=== PATIENT | female | born 1985 | race Caucasian/White ===

== ENCOUNTER → 2019-07-15 | Outpatient (CLI) | payer OTHER ==
[~2019-07-15] VITALS: Ht 167.6 cm; Wt 71.7 kg
[~2019-07-15] MED LIST: SINCALIDE 1.43 MCG in IV NORMAL SALINE 50ML 30 ML IV ONE
--- NOTE | 2019-07-15 16:06 | RAD ---
Hepatobiliary scan 07/15/2019 INDICATION: Right upper quadrant pain COMPARISON STUDY: HEPATOBILIARY SCAN WITH EJECTION FRACTION 07/15/2019 4:01 PM History: Right upper abdominal pain x6 months Procedure: Serial static images are obtained of the liver and biliary system in the frontal projection following IV administration of 5 mCi of Technetium 99m Choletec. After filling of the gallbladder, 1.43 mcg of sincalide were infused over 30 minutes and dynamic imaging continued over this period. The gallbladder ejection fraction was calculated. Findings: There is an appropriate hepatic clearance of tracer from the blood pool. Gallbladder fills with radiotracer in expected fashion. Following the administration of CCK gallbladder ejection fraction measures 30% (normal gallbladder EF is 35% or greater). IMPRESSION: 1. The cystic duct and common bile duct are patent. Negative for acute cholecystitis. 2. The gallbladder ejection fraction is abnormally low measuring 30%. Correlate for clinical evidence of chronic cholecystitis or gallbladder dyskinesia. Electronically signed by: Yoni Person MD (07/15/2019 4:03 PM) [id number]
== END | disposition home or self-care (01) ==
LOC: NM 13:01
PROVIDERS: ATTEND Internal Medicine Gastroenterology
DX: R10.13 Epigastric pain (principal)
CPT/HCPCS: 78227; A9537; J2805

== ENCOUNTER → 2019-08-09 | Outpatient (CLI) | payer OTHER ==
[~2019-08-09] MED LIST changes: +IOHEXOL 240 MG/ML 50ML VIAL. ONE; +IOHEXOL 240 MG/ML 50ML VIAL. PO ONE; +IOHEXOL 300 MG/ML 75 ML VIAL. IV ONE; -SINCALIDE 1.43 MCG in IV NORMAL SALINE 50ML 30 ML IV ONE
--- NOTE | 2019-08-09 16:11 | RAD ---
Examination: CT ABD PELV W/ORAL IV CONTRAST History: Nausea, epigastric pain, upper abdominal pain Comparison/Correlation: None Findings: Axial images of the abdomen pelvis were obtained following IV and oral contrast. Sagittal and coronal reformatted images were obtained. The visualized lung bases are clear. Liver, spleen, pancreas, and adrenal glands are normal. Gallbladder fossa is unremarkable. Bilateral extrarenal pelves noted. Symmetric perfusion of the kidneys is present and normal. Moderate to large quantity of stool in the colon is present. No inflammatory change about the cecum. No enlarged abdominal or pelvic lymph nodes. No extraluminal gas. Small umbilical hernia contains omental fat. Heterogeneous, hypoenhancement of the myometrium and endometrium is noted and nonspecific. Urinary bladder is unremarkable. Small adnexal follicles are suggested. Bony structures are unremarkable. T12 sclerotic bone lesion which probably represents a bone island is present. Impression: No mass, inflammatory process or other suspicious finding. PQRS Compliance Statement: One or more of the following individualized dose reduction techniques were utilized for this examination: 1. Automated exposure control 2. Adjustment of the mA and/or kV according to patient size 3. Use of iterative reconstruction technique Electronically signed by: Mario Caal MD (08/09/2019 4:08 PM) [facility]
== END | disposition home or self-care (01) ==
LOC: CT 11:25
PROVIDERS: ATTEND Internal Medicine Gastroenterology
DX: K42.9 Umbilical hernia without obstruction or gangrene (principal)
CPT/HCPCS: 74177; Q9967

== ENCOUNTER 2019-11-21 07:46 | Emergency (ER) | payer OTHER ==
[~2019-11-21] VITALS: Ht 167.6 cm; Wt 72.0 kg
[2019-11-21] MEDS ORDERED: IV NORMAL SALINE 1,000ML 1,000 ML IV SCH (08:04)
[2019-11-21] MEDS ORDERED: KETOROLAC 30 MG/ML VIAL. IVP ONE (08:15)
--- NOTE | 2019-11-21 08:37 | PHYS DOC ---
Past History Past Medical History: Hypothyroid Past Surgical History: Cholecystectomy, Alcohol Use: Occasionally Adult General Chief Complaint Chief Complaint: FEVER HPI HPI Patient is a 34-year-old female who presents with complaint of fever and cough that started yesterday. Patient states that fever has been as high as 105 at home. Patient states that cough has been productive of green sputum. She states that she also has body aches and chills. She denies any chest pain or shortness of breath. She also denies any vomiting or diarrhea. Patient states that she has been taking in quite a bit of fluids.[] Review of Systems Review of Systems Constitutional: Positive fever and chills [] Respiratory: Positive cough without shortness of breath [] Cardiovascular: No additional information not addressed in HPI [] GI: Denies abdominal pain, nausea, vomiting or diarrhea [] Integument: Denies rash or skin lesions [] Neurologic: Denies headache, focal weakness or sensory changes [] All other systems were reviewed and found to be within normal limits, except as documented in this note. Current Medications Current Medications Current Medications Medications (Trade) Dose Ordered Sig/Michael Start Time Stop Time Status Last Admin Dose Admin Ketorolac Tromethamine (Toradol 30mg Vial) 30 mg 1X ONCE 11/21/19 08:15 11/21/19 08:16 DC Sodium Chloride 1,000 ml @ 1,000 mls/hr Q1H 11/21/19 08:04 11/21/19 09:03 Allergies Allergies Allergies Coded Allergies Type Severity Reaction Last Updated Verified No Known Drug Allergies 07/15/19 No Physical Exam Physical Exam Constitutional: Well developed, well nourished, no acute distress, non-toxic appearance. [] HENT: Normocephalic, atraumatic, bilateral external ears normal, oropharynx moist, no oral exudates, nose normal. [] Eyes: PERRLA, EOMI, conjunctiva normal, no discharge. [] Neck: Normal range of motion, no tenderness, supple. [] Cardiovascular: Mildly tachycardic rate with regular rhythm[] Lungs & Thorax: Bilateral breath sounds clear to auscultation [] Abdomen: Bowel sounds normal, soft, no tenderness. [] Skin: Warm, dry, no erythema, no rash. [] Extremities: No tenderness, no cyanosis, no clubbing, ROM intact. [] Neurologic: Alert and oriented X 3, no focal deficits noted. [] Current Patient Data Vital Signs Vital Signs Date Time Temp Pulse Resp B/P (MAP) Pulse Ox O2 Delivery O2 Flow Rate FiO2 11/21/19 07:51 98.8 104 20 118/70 (86) 96 Room Air EKG EKG [] Radiology/Procedures Radiology/Procedures [] Course & Med Decision Making Course & Med Decision Making Pertinent Labs and Imaging studies reviewed. (See chart for details) [] Dragon Disclaimer Dragon Disclaimer This electronic medical record was generated, in whole or in part, using a voice recognition dictation system. Departure Departure: Impression: Primary Impression: Influenza A Additional Impression: Bronchitis Disposition: HOME, SELF-CARE Condition: STABLE Referrals: KARSTEN RODRIGUES (PCP) Patient Instructions: Acute Bronchitis, Influenza, Adult Scripts Oseltamivir Phosphate (TAMIFLU) 75 Mg Capsule 1 CAP PO BID for flu, #10 CAP Prov: JAIRON ROBERTS Jr. DO 11/21/19 Guaifenesin/Codeine Phosphate (Codeine-Guaifen 10-100 mg/5 ml) 120 Ml Liquid 5 ML PO PRN Q6HRS PRN for cough and congestion MDD 20 Milliliter(s) for 6 Days, #120 ML 0 Refills Prov: JAIRON ROBERTS Jr. DO 11/21/19 Amoxicillin/Potassium Clav (AUGMENTIN 875-125 TABLET) 1 Each Tablet 1 TAB PO BID for infection for 10 Days, #20 TAB 0 Refills Prov: JAIRON ROBERTS Jr. DO 11/21/19 Problem Qualifiers JAIRON ROBETRS Jr. DO Nov 21, 2019 08:37
[2019-11-21 08:43] LABS: CALCIUM 8.7 mg/dL (8.5-10.1); CREATININE 0.9 mg/dL (0.6-1.0); GFR 71.3; POTASSIUM 3.7 mmol/L (3.5-5.1)
--- NOTE | 2019-11-21 08:57 | RAD ---
PORTABLE CHEST 1V INDICATION: Cough, fever. COMPARISON STUDY: None. FINDINGS: Lungs: Normal lung volume. Mild right mid lung zone opacities. The tracheobronchial tree and hilar structures are normal. Pleura: No pleural effusion or pneumothorax. Heart and Mediastinum: The cardiomediastinal silhouette is normal. The great vessels of the thorax are normal. Bones and Soft Tissues: The bones and soft tissues are within normal limits. IMPRESSION: Mild right mid lung zone opacities, which may represent subsegmental atelectasis or potentially an infectious/inflammatory process. Electronically signed by: Yordy Serna MD (11/21/2019 8:54 AM) [id number]
[2019-11-21 09:00] LABS: INFLUENZA A PATIENT POSITIVE (NEGATIVE); INFLUENZA B PATIENT NEGATIVE (NEGATIVE)
[2019-11-21 09:09] LABS: HEMOGLOBIN 11.8 g/dL (12.0-15.5); RED BLOOD COUNT 4.29 x10^6/uL (3.50-5.40); WHITE BLOOD COUNT 4.6 x10^3/uL (4.0-11.0)
[2019-11-21 09:10] LABS: HEMATOCRIT 38.3 % (36.0-47.0); MEAN CORPUSCULAR HEMOGLOBIN 28 pg (25-35); MEAN CORPUSCULAR HGB CONC 31 g/dL (31-37); MEAN CORPUSCULAR VOLUME 89 fL (79-100); PLATELET COUNT 193 x10^3/uL (140-400); RED CELL DISTRIBUTION WIDTH 13.3 % (11.5-14.5)
[2019-11-21 09:19] LABS: % BANDS 5 % (0-9); % LYMPHS 14 % (24-48); % MONOS 14 % (0-10); % SEGS 67 % (35-66)
[2019-11-21 09:20] LABS: OVALOCYTES OCC; PLT ESTIMATE ADEQUATE (ADEQUATE)
[2019-11-21] MEDS ORDERED: OSELTAMIVIR 75 MG CAPSULE PO ONE (10:00)
[2019-11-21 10:01] LABS: BACTERIA,URINE 0 /HPF (0-FEW); BILIRUBIN,URINE NEG (NEG); CLARITY,URINE CLEAR; COLOR,URINE STRAW; GLUCOSE,URINE NEG (NEG); NITRITE,URINE NEG (NEG); RBC,URINE 0 /HPF (0-2); SQUAMOUS EPITHELIAL CELL,UR FEW /LPF; UROBILINOGEN,URINE 0.2 mg/dL (0.2 mg/dL); WBC,URINE 0 /HPF (0-4)
[2019-11-21] MEDS ORDERED: OSEL75CA PO (10:14)
[2019-11-21] MEDS ORDERED: AMOX1TAB61 PO (10:14)
[2019-11-21] MEDS ORDERED: GUAI120L35 PO (10:14)
[2019-11-21 10:15] VITALS: BP 106/64
== END 2019-11-21 10:23 | disposition home or self-care (01) ==
LOC: ER 07:46
DX: J10.1 Influenza due to other identified influenza virus with other respiratory manifestations (principal); J40 Bronchitis, not specified as acute or chronic; E03.9 Hypothyroidism, unspecified
CPT/HCPCS: 36415; 71045; 80048; 81001; 85007; 85025; 87040; 87070; 87804; 87880; 96374; 99284; J1885; J7030